=== PATIENT | female | born 1965 | race Hispanic/Latino ===

== ENCOUNTER 2016-06-04 02:52 | Emergency (ER) | payer MEDICARE, BC | END 2016-06-04 03:41 | disposition left against medical advice (07) | LOC: ED 02:52 | DX: Z02.89 Encounter for other administrative examinations (principal); R21 Rash and other nonspecific skin eruption ==

== ENCOUNTER 2018-03-15 01:19 | Emergency (ER) | payer MEDICARE, BC ==
[2018-03-15 02:03] VITALS: BMI 18.8
[2018-03-15 02:11] VITALS: BP 152/64; PULSE 75; RESP 18; TEMP 97.5; O2SAT 98
--- NOTE | 2018-03-15 02:24 | ED PDOC ---
Arrival/HPI - General Chief Complaint: Female Genitourinary Time Seen by Provider: 03/15/18 01:20 Historian: Patient - History of Present Illness Narrative History of Present Illness (Text): 03/15/18 02:23 52 year old female, with no significant past medical history, presents to the emergency department complaining of urinary retention for the past 12 hours. Patient reports she has been experiencing this intermittently for the past week. Patient was recently diagnosed and treated for a UTI on Macrobid and Pyridium finishing her last dose 4 days ago. She denies any dysuria. Patient reports suprapubic pressure, but denies any fever, chills, chest pain, shortness of breath, nausea, vomiting, diarrhea, back pain, neck pain, headache, dizziness, or any other complaints. Time/Duration: Other (12 hours ) Symptom Onset: Gradual Symptom Course: Unchanged Activities at Onset: Rest Context: Home Past Medical History - Provider Review Nursing Documentation Reviewed: Yes - Tetanus Immunization Tetanus Immunization: Unknown - Reproductive Currently : No - Past Medical History Past Medical History: No Previous - Cardiac Other/Comment: COLON CA - Gastrointestinal Other/Comment: colon ca - Genitourinary/Gynecological Other/Comment: ovarian cyst - Psychiatric Hx Substance Use: No (pt was on suboxone) - Past Surgical History Past Surgical History: Non-Contributing - Surgical History Other/Comment: ovarian cyst. calcification on r breast - Anesthesia Hx Anesthesia: Yes Hx Anesthesia Reactions: No Hx Malignant Hyperthermia: No - Suicidal Assessment Feels Threatened In Home Enviroment: No Family/Social History - Physician Review Nursing Documentation Reviewed: Yes Family/Social History: No Known Family HX Smoking Status: Heavy Smoker > 10 Cigarettes Daily Hx Alcohol Use: No Hx Substance Use: No (pt was on suboxone) Hx Substance Use Treatment: No Allergies/Home Meds Allergies/Adverse Reactions: Allergies ampicillin Allergy (Verified 03/15/18 02:09) ITCHING Sulfa (Sulfonamide Antibiotics) Allergy (Verified 03/15/18 02:09) ITCHING Home Medications: Home Meds Medication Instructions Recorded Confirmed ARIPiprazole [Abilify] 5 mg DAILY 03/15/18 03/15/18 DULoxetine [Cymbalta] 60 mg PO DAILY 03/15/18 03/15/18 Review of Systems - Physician Review All systems were reviewed & negative as marked: Yes - Review of Systems Constitutional: absent: Fevers, Other (chills) Respiratory: absent: SOB Cardiovascular: absent: Chest Pain Gastrointestinal: Abdominal Pain (suprapubic pressure). absent: Diarrhea, Nausea, Vomiting Genitourinary Female: Other (urinary retention). absent: Dysuria, Frequency, Hematuria Musculoskeletal: absent: Back Pain, Neck Pain Neurological: absent: Headache, Dizziness Physical Exam Vital Signs Reviewed: Yes Vital Signs Temp Pulse Resp BP Pulse Ox 03/15/18 02:10 97.5 F L 75 18 152/64 H 98 Temperature: Afebrile Blood Pressure: Hypertensive Pulse: Regular Respiratory Rate: Normal Appearance: Positive for: Well-Appearing, Non-Toxic, Comfortable Pain Distress: None Mental Status: Positive for: Alert and Oriented X 3 - Systems Exam Head: Present: Atraumatic, Normocephalic Pupils: Present: PERRL Extroacular Muscles: Present: EOMI Conjunctiva: Present: Normal Mouth: Present: Moist Mucous Membranes Respiratory/Chest: Present: Clear to Auscultation, Good Air Exchange. No: Respiratory Distress, Accessory Muscle Use Cardiovascular: Present: Regular Rate and Rhythm, Normal S1, S2. No: Murmurs, Rub, Gallop Abdomen: Present: Tenderness (suprapubic) Neurological: Present: GCS=15, Speech Normal Skin: Present: Warm, Dry, Normal Color. No: Rashes Psychiatric: Present: Alert, Oriented x 3, Normal Insight, Normal Concentration Medical Decision Making ED Course and Treatment: 03/15/18 02:24 Impression: 52 year old female presents complaining of urinary retention and suprapubic pressure for the past 12 hours. Differential Diagnosis included but are not limited to: UTI Plan: -- Urinalysis -- Urine Culture -- Reassess and disposition Prior Visits: Notes and results from previous visits were reviewed. Progress Notes: 03/17/18 02:06 Patient reports being able to urinate in the ED with spontaneous resolution of symptoms. UA reveals small leukocyte esterase with minimal bacteria. Patient updated on results and advised to follow up with her PCP. She is stable for discharge. - Lab Interpretations Lab Results: Lab Results 03/15/18 02:20: Urine Color Yellow, Urine Appearance Clear, Urine pH 6.5, Ur Specific [place] 1.025, Urine Protein Negative, Urine Glucose (UA) Negative, Urine Ketones Negative, Urine Blood Moderate H, Urine Nitrate Negative, Urine Bi lirubin Negative, Urine Urobilinogen 0.2, Ur Leukocyte Esterase Small H, Urine RBC 0 - 2, Urine WBC 1 - 3, Ur Epithelial Cells 3 - 4, Amorphous Sediment Moderate, Urine Bacteria Few I have reviewed the lab results: Yes - Scribe Statement The provider has reviewed the documentation as recorded by the Scribe Bre Ni Provider Scribe Attestation: All medical record entries made by the Scribe were at my direction and personally dictated by me. I have reviewed the chart and agree that the record a ccurately reflects my personal performance of the history, physical exam, medical decision making, and the department course for this patient. I have also personally directed, reviewed, and agree with the discharge instructions and disposition. Disposition/Present on Arrival - Present on Arrival Any Indicators Present on Arrival: No History of DVT/PE: No History of Uncontrolled Diabetes: No Urinary Catheter: No History of Decub. Ulcer: No History Surgical Site Infection Following: None - Disposition Have Diagnosis and Disposition been Completed?: Yes Diagnosis: Urinary retention Disposition: HOME/ ROUTINE Disposition Time: 02:58 Patient Plan: Discharge Condition: STABLE Discharge Instructions (ExitCare): Urinary Retention (DC) Print Language: CITIZEN OF [place] Additional Instructions: All medical record entries made by the Scribe were at my direction and personally dictated by me. I have reviewed the chart and agree that the record accurately reflects my personal performance of the history, physical exam, medical decision making, and the department course for this patient. I have also personally directed, reviewed, and agree with the discharge instructions and disposition. Please follow up with a urologist Referrals: Alli Daniel MD [Primary Care Provider] - Follow up with primary Miguel Kraus MD [Staff Provider] - Follow up with primary Nirmal Sims MD [Staff Provider] - Follow up with primary Forms: [employer] ([place]onian)
[2018-03-15 02:46] LABS: PH,URINE 6.5 (4.7-8.0); URINE BILIRUBIN NEGATIVE (NEGATIVE); URINE BLOOD MODERATE (NEGATIVE); URINE GLUCOSE (UA) NEGATIVE (NEGATIVE); URINE LEUKOCYTE ESTERASE SMALL Leu/uL (NEGATIVE); URINE PROTEIN NEGATIVE mg/dL (<30 mg/dL); URINE UROBILINOGEN 0.2 E.U./dL (<1 E.U./dL)
[2018-03-15 02:47] LABS: URINE APPEARANCE CLEAR (CLEAR); URINE COLOR YELLOW (YELLOW)
[2018-03-15 03:21] LABS: URINE RBC 0 - 2 /hpf (0-2)
[2018-03-15 03:22] LABS: URINE AMORPHOUS SEDIMENT MODERATE /hpf; URINE BACTERIA FEW /hpf
== END 2018-03-15 03:10 | disposition home or self-care (01) ==
LOC: ED 01:19
DX: R33.9 Retention of urine, unspecified (principal); F17.210 Nicotine dependence, cigarettes, uncomplicated